=== PATIENT | male | born 1985 | race Caucasian/White ===

== ENCOUNTER 2018-02-21 17:01 | Emergency (ER) | payer MEDICAID, OTHER ==
[2018-02-21 17:46] VITALS: BP 133/93; PULSE 96; RESP 16; TEMP 98.2; O2SAT 98
[2018-02-21] MEDS ORDERED: Diphenhydramine 1% Cream (1 oz) TOP STA (18:36)
--- NOTE | 2018-02-21 18:52 | C.PDOC ---
History Of Present Illness 32 y/o male presents to ED with c/o recurrent rash to abdomen, elbows and knees intermittently. Patient states rash is present more when weather is hot and denies sob, chest pain, penile discharge, dysuria or any other complaints at this time. Time Seen by Provider: 02/21/18 18:36 Chief Complaint (Nursing): Abnormal Skin Integrity History Per: Patient History/Exam Limitations: no limitations Onset/Duration Of Symptoms: Days Current Symptoms Are (Timing): Still Present Past Medical History Reviewed: Historical Data, Nursing Documentation, Vital Signs Vital Signs: Last Vital Signs Temp 98.2 F 02/21/18 17:44 Pulse 96 H 02/21/18 17:44 Resp 16 02/21/18 17:44 BP 133/93 H 02/21/18 17:44 Pulse Ox 98 02/21/18 19:19 - Medical History PMH: Back Problems Surgical History: Back Surgery (FUSION X 2) Family History: States: No Known Family Hx - Social History Hx Alcohol Use: Yes Hx Substance Use: No - Immunization History Hx Tetanus Toxoid Vaccination: No Hx Influenza Vaccination: No Hx Pneumococcal Vaccination: No Review Of Systems Constitutional: Negative for: Fever, Chills Cardiovascular: Negative for: Chest Pain Respiratory: Negative for: Shortness of Breath Gastrointestinal: Negative for: Nausea, Vomiting Skin: Positive for: Rash Physical Exam - Physical Exam Appears: Non-toxic, No Acute Distress Skin: Warm, Dry, Rash (Maculopapular rash with excoriations to abdominal area, elbows and knees ) Head: Atraumatic, Normacephalic Oral Mucosa: Moist Neck: Normal ROM, Supple Cardiovascular: Rhythm Regular Respiratory: Normal Breath Sounds, No Rales, No Rhonchi, No Wheezing Gastrointestinal/Abdominal: Soft, No Tenderness, No Guarding, No Rebound Neurological/Psych: Oriented x3, Normal Speech, Normal Cognition ED Course And Treatment O2 Sat by Pulse Oximetry: 98 (RA) Pulse Ox Interpretation: Normal Disposition - Disposition Disposition: HOME/ ROUTINE Disposition Time: 18:49 Condition: STABLE Prescriptions: Diphenhydramine 1% [BENADRYL 1% Zinc Acetate -0.1%] 1 applic TOP Q12 #1 tube hydrOXYzine HCl [Atarax] 1 tab PO BID PRN #10 tab PRN Reason: .itching/rash Instructions: Skin Rash (DC) Forms: [employer] ([place]), General Discharge Instructions - POA Present On Arrival: None - Clinical Impression Clinical Impression: Rash in adult - Scribe Statement The provider has reviewed the documentation as recorded by the Littleibsalo Vargas All medical record entries made by the Littleibsalo were at my direction and personally dictated by me. I have reviewed the chart and agree that the record accurately reflects my personal performance of the history, physical exam, medical decision making, and the department course for this patient. I have also personally directed, reviewed, and agree with the discharge instructions and disposition.
== END 2018-02-21 19:25 | disposition home or self-care (01) ==
LOC: C.ER 17:01
DX: R21 Rash and other nonspecific skin eruption (principal)

== ENCOUNTER 2018-12-05 21:15 | Emergency (ER) | payer SELFPAY ==
[2018-12-05 21:27] VITALS: BP 154/108; RESP 20; TEMP 98.2
--- NOTE | 2018-12-05 21:43 | C.PDOC ---
History Of Present Illness 33 year old male presents with generalized rash that began this morning. Denies known allergens, Hx of past reactions, SOB, lip swelling, or tongue swelling. Time Seen by Provider: 12/05/18 21:28 Chief Complaint (Nursing): Abnormal Skin Integrity History Per: Patient History/Exam Limitations: no limitations Onset/Duration Of Symptoms: Hrs Current Symptoms Are (Timing): Still Present Quality Of Symptoms: Other (Rash) Recent travel outside of the [place]: No Past Medical History Reviewed: Historical Data, Nursing Documentation, Vital Signs Vital Signs: Last Vital Signs Temp 98.2 F 12/05/18 21:24 Pulse 127 H 12/05/18 21:24 Resp 20 12/05/18 21:24 BP 154/108 H 12/05/18 21:24 Pulse Ox 95 12/05/18 21:24 - Medical History PMH: Back Problems Surgical History: Back Surgery (FUSION X 2) Family History: States: Unknown Family Hx - Social History Hx Alcohol Use: Yes Hx Substance Use: No - Immunization History Hx Tetanus Toxoid Vaccination: No Hx Influenza Vaccination: No Hx Pneumococcal Vaccination: No Review Of Systems Constitutional: Negative for: Fever, Chills ENT: Negative for: Mouth Swelling, Throat Swelling Respiratory: Negative for: Shortness of Breath, Wheezing Skin: Positive for: Rash Physical Exam - Physical Exam Appears: Non-toxic Skin: Warm, Dry, Rash (Diffuse hives) Head: Atraumatic, Normacephalic, No Swelling (Facial) Eye(s): bilateral: Normal Inspection Oral Mucosa: Moist Tongue: Normal Appearing, No Swelling Lips: Normal Appearing, No Swelling Neck: Normal, Supple Chest: Symmetrical, No Tenderness Cardiovascular: Rhythm Regular Respiratory: Normal Breath Sounds, No Accessory Muscle Use, No Stridor, No Wheezing Neurological/Psych: Oriented x3, Normal Speech ED Course And Treatment O2 Sat by Pulse Oximetry: 95 (Room air) Pulse Ox Interpretation: Normal Progress Note: Benadryl and prednisone administered. Patient is resting comfortably in no acute distress, vitals are stable, rash has much improved, will discharge home with Rx and instructions to follow up with PMD or return if symptoms worsen. Disposition Counseled Patient/Family Regarding: Diagnosis, Need For Followup - Disposition Disposition: HOME/ ROUTINE Disposition Time: 21:40 Condition: STABLE Additional Instructions: Take all medications as directed May take zyrtec during the day when you need to stay awake and benadryl at night Follow up with PMD Return to ER if difficulty breathing, lip swelling , or worse Prescriptions: Cetirizine HCl [Zyrtec] 10 mg PO DAILY #14 capsule DiphenhydrAMINE [Benadryl] 50 mg PO Q6H PRN #20 cap PRN Reason: Rash Famotidine [Pepcid] 20 mg PO DAILY #10 tab predniSONE [Prednisone] 40 mg PO DAILY #8 tab Instructions: Hives (DC) Forms: [employer] (Italian) - Clinical Impression Clinical Impression: Allergic urticaria - 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 - Scribe Statement The provider has reviewed the documentation as recorded by the Scribsalo Brito All medical record entries made by the Littleibsalo were at my direction and personally dictated by me. I have reviewed the chart and agree that the record accurately reflects my personal performance of the history, physical exam, medical decision making, and the department course for this patient. I have also personally directed, reviewed, and agree with the discharge instructions and disposition.
[2018-12-05 21:59] VITALS: PULSE 114
[2018-12-06 00:48] VITALS: O2SAT 95
== END 2018-12-05 21:58 | disposition home or self-care (01) ==
LOC: C.ER 21:15
DX: L50.0 Allergic urticaria (principal)